=== PATIENT | male | born 1990 | race Hispanic/Latino ===

== ENCOUNTER 2024-09-21 22:14 | Emergency (ER) | payer SELFPAY ==
[~2024-09-21] VITALS: Ht 165.1 cm; Wt 78.9 kg
[2024-09-21 22:50] LABS: IMMATURE GRANULOCYTE ABSOLUTE 0.05 K/uL (0-1); NUCLEATED RED BLOOD CELLS 0.0 % (0.0-0.19); PLATELET COUNT (AUTO) 385 K/uL (130-400); RED BLOOD CELL COUNT(AUTO) 4.60 MIL/uL (4.50-6.20); RED CELL DISTRIBUTION WIDTH 21.9 % (11.0-15.5); WHITE BLOOD COUNT (AUTO) 9.7 K/uL (4.8-10.8)
[2024-09-21 22:56] LABS: CREATININE 0.8 mg/dL (0.5-1.3); GLOMERULAR FILTR. RATE CALC 119.0 mL/min (>90); GLUCOSE,RANDOM 98.0 mg/dL (70-105); SODIUM SERUM 143.0 mmol/L (136-145); UREA NITROGEN, BLOOD 19.0 mg/dL (7-18)
--- NOTE | 2024-09-22 00:21 | HMCIMG ---
EXAM: CT Maxillofacial Without IV contrast. CLINICAL HISTORY: Pain and swelling. TECHNIQUE: Axial computed tomography images of the face without intravenous contrast. Sagittal and coronal reformatted images were generated. CONTRAST: None. COMPARISON: None provided. FINDINGS: FACIAL BONES/ORBITS: No acute fracture or aggressively appearing osseous lesion. The mandible is intact. The orbits are normal. No retrobulbar hematoma or mass. Mild mucosal thickening in the left maxillary sinus. The nasal septum is deviated to the right side. SOFT TISSUES: Mild subcutaneous fatty stranding on the right side of the face. No radiopaque foreign body or focal fluid collection. IMPRESSION: No acute osseous abnormality. Mild subcutaneous fat stranding on the right side of the face suggests inflammatory changes. No localized fluid collection or abscess. The nasal septum is deviated to the right side. Mild left maxillary sinusitis. /Fili
[2024-09-22] MEDS ORDERED: FLUT16H NS (01:21)
[2024-09-22] MEDS ORDERED: CLIN-141 PO (01:21)
--- NOTE | 2024-09-22 01:24 | ERN ---
General Chief Complaint: Face Pain/Problem Stated Complaint: C/O PAIN WITH SWELLING TO FACE X 1 WK Time Seen by MD: 22:17 Time Seen by Midlevel: 22:17 Source: patient History of Present Illness Initial Comments 34-year-old male presents to the emergency department due to right facial pain and swelling onset one week. Patient states he was seen at [facility] yesterday was given a steroid and patient left AMA. Per patient's swelling improved slightly however patient has continued with pain. Patient has not been taking any medications for pain. Denies fever, chills, abdominal pain, ear pain, vision change, dental pain or further associated symptoms. Denies significant past medical history. Allergies: Coded Allergies: No Known Allergies (Unverified Allergy, Unknown, 09/21/24) Home Meds Active Scripts Fluticasone Propionate (Flonase Nasal [place]) 50 Mcg/Actuation [place], 2 SPRAY NS DAILY for 10 Days, #16 GM 0 Refills Prov:SHAWNA GARCIA 09/22/24 Clindamycin HCl (Clindamycin HCl) 300 Mg Capsule, 1 CAP PO QID for 10 Days, #40 CAP 0 Refills Prov:SHAWNA GARCIA 09/22/24 Past Medical History Past Medical History: No Pertinent History Past Surgical History: None ROS Dictation Constitutional: Negative for fever,chills, and weight loss Eyes: Negative for injury, pain,redness, and discharge ENT: Positive for facial pain and swelling. Negative for injury,pain or swelling Cardiovascular: Negative for chest pain, palpitations, and edema Respiratory: Negative for shortness of breath, cough, and wheezing, Abdomen/GI: Negative for abdominal pain, nausea, vomiting, diarrhea, and c onstipation Back: Negative for injury and pain : Negative for painful urination, bleeding or discharge MS/Extremity: Negative for injury and deformity Skin: Negative for rash, and discoloration Neuro: Negative for headache, weakness, numbness, tingling, and seizure Psych: Negative for suicide ideation, homicidal ideation, and hallucinations Physical Exam Physical Exam Dictation General: awake, alert, no acute distress Head/Face: Mild right facial swelling, maxillofacial sinus tenderness. Normocephalic, atraumatic Eyes: PERRL, EOMI, normal conjunctiva ENT: Poor dental hygiene. oral cavity clear, TMs clear, oral mucosa moist Neck: Supple, normal range of motion Cardiovascular: RRR, normal S1/S2 Respiratory: CTAB, no respiratory distress Skin: Warm, dry, normal turgor, no rash MS/Extremity: Pulses equal, no cyanosis, neurovascular intact, FROM Neuro: COAx4, GCS 15, strength 5/5, CN 2-12 intact, normal cerebellar exam, normal gait Psych: Normal behavior, mood, and affect normal Results Laboratory and Microbiology Lab and Micro Result Laboratory Tests Test 09/21/24 22:38 White Blood Count 9.7 K/uL (4.8-10.8) Red Blood Count 4.60 MIL/uL (4.50-6.20) Hemoglobin 8.4 g/dL (14.0-18.0) L Hematocrit 30.1 % (42-54) L Mean Corpuscular Volume 65.4 fL (79-99) L Mean Corpuscular Hemoglobin 18.3 pg (27.0-33.0) L Mean Corpuscular Hemoglobin Concent 27.9 g/dL (32.0-36.0) L Red Cell Distribution Width 21.9 % (11.0-15.5) H Platelet Count 385 K/uL (130-400) Mean Platelet Volume 9.4 fL (7.5-10.5) Immature Granulocyte % (Auto) 0.5 % (0-1) Neutrophils (%) (Auto) 55.1 % (40.0-77.0) Lymphocytes (%) (Auto) 32.5 % (21.0-51.0) Monocytes (%) (Auto) 8.8 % (3.0-13.0) Eosinophils (%) (Auto) 1.8 % (0.0-8.0) Basophils (%) (Auto) 1.3 % (0.0-5.0) Neutrophils # (Auto) 5.4 K/uL (1.8-7.7) Lymphocytes # (Auto) 3.2 K/uL (1.0-4.8) Monocytes # (Auto) 0.9 K/uL (0.1-1.0) Eosinophils # (Auto) 0.17 K/uL (0.00-0.70) Basophils # (Auto) 0.13 K/uL (0.00-0.20) Absolute Immature Granulocyte (auto 0.05 K/uL (0-1) Nucleated Red Blood Cells 0.0 % (0.0-0.19) Red Blood Cell Morphology See comments Sodium Level 143 mmol/L (136-145) Potassium Level 3.6 mmol/L (3.5-5.1) Chloride Level 105 mmol/L (101-111) Carbon Dioxide Level 30 mmol/L (21-32) Blood Urea Nitrogen 19 mg/dL (7-18) H Creatinine 0.8 mg/dL (0.5-1.3) Glomerular Filtration Rate Calc 119 mL/min (>90) Random Glucose 98 mg/dL (70-105) Total Calcium 8.4 mg/dL (8.5-10.1) L Labs Reviewed?: Yes EKG/XRAY/US/CT/MRI CT Scan Comment REASON: pain, swelling ORDERING PHYSICIAN: SHAWNA GARCIA PROCEDURE: MAXSibaritus WO - CT MAXILLOFACIAL W/O CONTRAST EXAM: CT Maxillofacial Without IV contrast. CLINICAL HISTORY: Pain and swelling. TECHNIQUE: Axial computed tomography images of the face without intravenous contrast. Sagittal and coronal reformatted images were generated. CONTRAST: None. COMPARISON: None provided. FINDINGS: FACIAL BONES/ORBITS: No acute fracture or aggressively appearing osseous lesion. The mandible is intact. The orbits are normal. No retrobulbar hematoma or mass. Mild mucosal thickening in the left maxillary sinus. The nasal septum is deviated to the right side. SOFT TISSUES: Mild subcutaneous fatty stranding on the right side of the face. No radiopaque foreign body or focal fluid collection. IMPRESSION: No acute osseous abnormality. Mild subcutaneous fat stranding on the right side of the face suggests inflammatory changes. No localized fluid collection or abscess. The nasal septum is deviated to the right side. Mild left maxillary sinusitis. /[place] DICTATED BY: NIMISHA MONGE Jr., MD DATE: 09/22/24119 [facility] MDM: Differential diagnosis: Cellulitis, sinusitis, dental abscess Rationale: 34-year-old male presents to the emergency department due to right facial pain and swelling onset one week. Patient states he was seen at [facility] yesterday was given a steroid and patient left AMA. Per patient's swelling improved slightly however patient has continued with pain. Patient has not been taking any medications for pain. Denies fever, chills, abdominal pain, ear pain, vision change, dental pain or further associated symptoms. Denies significant past medical history. Vitals remained within normal limits during ED course. Labs obtained indicate anemia with hemoglobin of 8.4, otherwise nonspecific. No leukocytosis. CT maxillofacial obtained indicating no acute osseous abnormality, mild subcutaneous fat stranding of the right side of the face suggesting inflammatory changes, no fluid collection or abscess noted, nasal septum deviated slightly to the right side, mild left maxillary sinusitis. Ketorolac administered in the ED. Patient was educated on findings and diagnosis. Antibiotics prescribed for outpatient treatment. Advised to follow up with PCP and ENT. Return to the emergency department if any worsening symptoms. Patient verbalized understanding. Patient stable for discharge. I independently interpreted the test that were performed, results were reviewed by me and considered findings on radiology if ordered. Medical management and examination interpretation discussions were had by me with other qualified healthcare professionals as indicated for the patient's care. ED Course Orders Procedure Category Date Status Time Cbc With Differential LAB 09/21/24 Complete 22:24 Basic Metabolic Panel LAB 09/21/24 Complete 22:24 Ct Maxillofacial W/O CT 09/21/24 Resulted Contrast 22:24 Ketorolac PHA 09/22/24 Complete Tromethamine 15mg/Ml 00:30 Current Medications Medications (Trade) Dose Ordered Sig/Lizy Route PRN Reason Start Time Stop Time Status Last Admin Dose Admin Ketorolac Tromethamine (toRADol) 15 mg ONCE ONCE IM 09/22/24 00:30 09/22/24 00:31 DC 09/22/24 00:15 Vital Signs Date Time Temp Pulse Resp B/P (MAP) Pulse Ox O2 Delivery O2 Flow Rate FiO2 09/22/24 01:31 98.1 86 18 121/65 100 Room Air* 0 21 09/22/24 00:40 98.1 86 18 119/64 100 Room Air* 0 21 09/21/24 22:35 98.1 86 18 126/61 100 Room Air* 0 21 09/21/24 22:16 98.1 86 18 126/61 100 Room Air DX & DISP Disposition: Discharge Departure Impression: Primary Impression: Sinusitis Additional Impression: Facial swelling Condition: Stable Scripts Fluticasone Propionate (Flonase Nasal [place]) 50 Mcg/Actuation [place] 2 SPRAY NS DAILY for 10 Days, #16 GM 0 Refills Prov: SHAWNA GARCIA 09/22/24 Clindamycin HCl (Clindamycin HCl) 300 Mg Capsule 1 CAP PO QID for 10 Days, #40 CAP 0 Refills Prov: SHAWNA GARCIA 09/22/24 Additional Instructions: Discharge home. Rest. Follow up with primary care DrSummer in 24 hours. Return to the ER for any acute changes or worsening symptoms. If any medications were prescribed take as directed. Okay to continue home medications unless otherwise discussed during your visit in the emergency room today. Patient was also advised to follow-up with primary care physician in 1 to 2 days for continued monitoring. Referrals: SELF,REFERRAL (PCP) I performed the substantive portion of the visit. I have reviewed and personally made and approve the management plan that is documented in the notes by myself or the ERMELINDA. I acknowledge full responsibility for the patient's management plan. SHAWNA GARCIA Sep 22, 2024 01:24
[2024-09-22 01:31] VITALS: BP 121/65; PULSE 86; RESP 18; TEMP 98.1; O2SAT 100
== END 2024-09-22 01:32 | disposition home or self-care (01) ==
LOC: EDH 22:14
DX: J32.9 Chronic sinusitis, unspecified (principal); Z91.148 Patient's other noncompliance with medication regimen for other reason
CPT/HCPCS: 99285; 70486; 80048; 85025; 36415; 96372; J1885